=== PATIENT | female | born 1995 | race Caucasian/White ===

== ENCOUNTER → 2020-12-16 | Outpatient (CLI) | payer OTHER ==
[~2020-12-16] VITALS: Ht 172.7 cm; Wt 54.4 kg
[~2020-12-16] MED LIST: HYOSCYAMINE0.125 MG PO; LESSINA1 EACH PO; METAMUCIL0.4 GM PO; PROBIOTIC1 EAC7 PO
--- NOTE | 2020-12-18 08:14 | P ---
[facility] [place] [address] [place] [address] PROCEDURE REPORT Name: OLIVIA DYER Room #: REG AGUSTÍNFoster Combs#: [id number] Admission: 12/16/20 Attend Phys: Macho Ewing Discharge: Date of : 89 Report #: [id number] THIS REPORT FOR: cc: Lupe Miles MD, Lisa A. MD McElhinney, Christian C. MD ~ cc: Lupe Miles MD DATE OF SERVICE: 12/16/2020 PROCEDURE PERFORMED: Upper endoscopy with biopsies. HISTORY OF PRESENT ILLNESS: The patient is a 25-year-old female who was seen by myself in the office on 10/27/2020 for intermittent diarrhea, weight gain, nausea, increased belching, at one point was on PPI therapy, which was somewhat helpful. She reports emesis approximately one time per month. We started the patient on Levsin, which has been somewhat helpful. Plan is for upper endoscopy. She denies any dysphagia. DESCRIPTION OF PROCEDURE: The risks and benefits of the procedure were explained to the patient, those risks including but not limited to bleeding, perforation and the risk of sedation. She understood these risks and gave informed consent. Sedation was given using propofol per anesthesia. Next, using a standard Olympus upper endoscope, the scope was placed in the patient's mouth and advanced under direct vision through the esophagus, stomach and into the second portion of the duodenum. The larynx was normal in appearance. The esophagus was normal throughout. The GE junction was normal. Overall, the gastric mucosa was normal. Biopsies were obtained to rule out H. pylori. The pylorus was normal and patent. The duodenal bulb, first and second portion were normal. Biopsies were obtained to rule out the possibility of celiac sprue. The scope was then withdrawn and the procedure terminated. The patient tolerated the procedure well. IMPRESSION: Normal upper endoscopy. RECOMMENDATIONS: 1. Await biopsy results. 2. We will discuss options with the patient including restarting the trial of PPI therapy versus Zofran on a p.r.n. basis. Thank you for allowing me to participate in her care. <ELECTRONICALLY SIGNED> By: Macho Dial MD 12/18/20 [id number] [id number] Macho Dial MD /nt
--- NOTE | 2020-12-18 16:06 | PATH ---
[facility] [place] [address] PATHOLOGY RPT PROCEDURE Name: ANA LILIA DYER GAYLA Room #: REG GUALBERTO Wharton.#: [id number] Admission: 12/16/20 Date of : 89 Discharge: Report #: [id number] Path Case #: [id number] [facility] Accession Number: [id number] . 01 Material submitted: . PART A: duodenum - DUODENAL BX R/O C SPRUE PART B: gastrointestinal site - GASTRIC BX R/O H. PYLORI . 01 Clinical history: . N/V DIARRHEA . 02 Diagnosis: A. Small bowel mucosa, duodenum, endoscopic biopsy: - No diagnostic abnormalities present. - Negative for villous blunting or increase in intraepithelial lymphocytes. . B. Gastric mucosa, gastric R/O H. pylori, endoscopic biopsy: - Mild chronic gastritis. - Negative for intestinal metaplasia or atrophy. - Negative for Helicobacter pylori (properly controlled immunohistochemical stain performed). (IUV:kimberly; 12/18/2020) QMS 12/18/2020 1318 Local . 02 Electronically signed: . Grace Cleary MD, Pathologist NPI- [id number] . 01 Gross description: . A. Received in formalin labeled "Braden, Ana Lilia, duodenal BX rule out C sprue" are multiple beltran-brown soft tissue fragments measuring in aggregate 1.3 x 0.7 x 0.1 cm. The specimen is submitted entirely in A1. . B. Received in formalin labeled "Braden, Ana Lilia, gastric BX rule out H. pylori" are multiple beltran-brown soft tissue fragments measuring in aggregate 1.0 x 0.6 x 0.1 cm. The specimen is submitted entirely in B1. [place] [place] [facility] 12/17/2020 0920 Local . 02 Pathologist provided ICD-10: K29.50 . 02 CPT . 454311, 021246, T72046 Specimen Comment: A courtesy copy of this report has been sent to [phone], [phone], [place] [address] PATHOLOGY RPT PROCEDURE Name: DYERANA LILIA Room #: REG GUALBERTO Combs#: [id number] Admission: 12/16/20 Date of : 89 Discharge: Report #: [id number] Path Case #: [id number] Specimen Comment: [id number] Specimen Comment: Report sent to / DR TODD Performed at: [address] [facility], [place], [place] [id number] MD Santy Medley MD Phone: [phone] Performed at: [address] [facility] [id number] MD Grace Cleary MD Phone: [phone]
== END | disposition home or self-care (01) ==
LOC: GI 07:11
PROVIDERS: ATTEND Specialist
DX: R19.7 Diarrhea, unspecified (principal); R11.2 Nausea with vomiting, unspecified; K29.50 Unspecified chronic gastritis without bleeding; K21.9 Gastro-esophageal reflux disease without esophagitis; Z79.899 Other long term (current) drug therapy
CPT/HCPCS: 62110; 62900